=== PATIENT | female | born 2000 | race Two or more races ===

== ENCOUNTER 2019-03-22 21:09 | Emergency (ER) | payer MEDICAID ==
[~2019-03-22] VITALS: Ht 167.6 cm; Wt 104.3 kg
[2019-03-23 00:19] VITALS: BP 123/77
== END 2019-03-23 00:29 | disposition home or self-care (01) ==
LOC: ER 21:13
DX: J30.9 Allergic rhinitis, unspecified (principal); Z88.0 Allergy status to penicillin